=== PATIENT | female | born 1980 | race Caucasian/White ===

== ENCOUNTER 2020-04-04 19:40 | Observation (INO) | payer MEDICAID ==
[~2020-04-04] VITALS: Ht 160 cm; Wt 70.3 kg
[2020-04-04] MEDS ORDERED: FERR325T6 PO (21:23)
[2020-04-04] MEDS ORDERED: OMEGA (21:23)
[2020-04-04] MEDS ORDERED: PREN1TAB78 PO (21:23)
[2020-04-04] MEDS ORDERED: ASPI-1160 PO (21:23)
== END 2020-04-05 21:35 | disposition home or self-care (01) ==
LOC: ER 19:40 → 8 EST LDRP 04-05 19:42
PROVIDERS: ADMIT Obstetrics & Gynecology; ATTEND Obstetrics & Gynecology
DX: Z34.93 Encounter for supervision of normal pregnancy, unspecified, third trimester (principal); Z3A.38 38 weeks gestation of pregnancy
CPT/HCPCS: 59025; 76815; 76818; 99281; G0378

== ENCOUNTER 2020-04-04 20:06 | Observation (INO) | payer MEDICAID ==
[~2020-04-04] VITALS: Ht 160 cm; Wt 70.3 kg
[2020-04-04] MEDS ORDERED: PREN1TAB78 PO (21:23)
[2020-04-04] MEDS ORDERED: ASPI-1160 PO (21:23)
[2020-04-04] MEDS ORDERED: FERR325T6 PO (21:23)
[2020-04-04] MEDS ORDERED: OMEGA (21:23)
== END 2020-04-04 22:40 | disposition home or self-care (01) ==
LOC: 8 EST LDRP 20:06
PROVIDERS: ADMIT Obstetrics & Gynecology; ATTEND Obstetrics & Gynecology
DX: O41.03X0 Oligohydramnios, third trimester, not applicable or unspecified (principal); Z3A.37 37 weeks gestation of pregnancy
CPT/HCPCS: 76815; 76818; 99281; G0378

== ENCOUNTER 2020-04-11 23:21 | Inpatient (IN) | payer MEDICAID ==
[~2020-04-11] VITALS: Ht 160 cm; Wt 68.0 kg
[~2020-04-11 23:21] MED LIST: ASPI-1160 PO; FERR325T6 PO; OMEGA; PREN1TAB78 PO
[2020-04-11] MEDS ORDERED: BUTORPHANOL TARTRATE 2 MG/ML VIAL IV PRN (23:45)
[2020-04-11] MEDS ORDERED: METHYLERGONOVINE MALEATE 0.2 MG/ML IM PRN (23:45)
[2020-04-11] MEDS ORDERED: NALOXONE HCL 0.4 MG/ML 1ML VIAL IM PRN (23:45)
[2020-04-11] MEDS ORDERED: LIDOCAINE HCL 1% 20ML VIAL (Pyxis) INJ INFIL SCH (23:45)
[2020-04-11] MEDS ORDERED: RHO(D) IMMUNE GLOBULIN 300 MCG/SYR IM ONE (23:45)
[2020-04-12 01:23] LABS: BASOPHILS % 0.4 % (0.0-2.0); EOSINOPHILS % 0.5 % (0.0-5.0); HEMATOCRIT. 38.8 % (36.0-48.0); HEMOGLOBIN. 13.3 g/dL (12.0-16.0); LYMPHOCYTES % 17.1 % (20.0-50.0); MEAN CORPUSCULAR HEMOGLOBIN 29.9 pg (28.0-32.0); MEAN PLATELET VOLUME 9.1 fl (7.4-10.4); PLATELET 223 x1000/uL (130-400); RED BLOOD CELL COUNT 4.46 mill/uL (4.2-5.4); RED CELL DISTRIBUTION WIDTH 14.2 % (11.6-14.6)
[2020-04-12 01:24] LABS: CLARITY URINE CLEAR (CLEAR); COLOR URINE YELLOW (YELLOW); KETONES URINE NEGATIVE (NEGATIVE); LEUKOCYTE ESTERASE URINE NEGATIVE (NEGATIVE); NITRITE URINE NEGATIVE (NEGATIVE); OCCULT BLOOD URINE NEGATIVE (NEGATIVE); PH URINE 6.5 (4.5-8.0); PROTEIN URINE NEGATIVE (NEGATIVE); SPECIFIC GRAVITY URINE 1.007 (1.005-1.030); UROBILINOGEN URINE 0.2 E.U./dL (0.2-1.0)
[2020-04-12 01:36] LABS: *AMPHETAMINES SCREEN URINE NEGATIVE (NEGATIVE); *BARBITURATES SCREEN URINE NEGATIVE (NEGATIVE)
[2020-04-12 01:37] LABS: *BENZODIAZEPINES SCREEN URINE NEGATIVE (NEGATIVE); *COCAINE SCREEN URINE NEGATIVE (NEGATIVE); CANNABINOID URINE SCREEN NEGATIVE (NEGATIVE); OPIATES URINE SCREEN NEGATIVE (NEGATIVE); PHENCYCLIDINE URINE SCREEN NEGATIVE (NEGATIVE)
[2020-04-12 01:44] LABS: INR 0.9; PARTIAL THROMBOPLASTIN TIME 25.6 sec (23.4-31.0); PROTHROMBIN TIME 9.6 sec (9.6-11.0)
[2020-04-12 01:46] LABS: METHADONE URINE SCREEN NEGATIVE (NEGATIVE)
[2020-04-12] MEDS: LACTATED RINGERS 1,000 ML IV SCH ×3 (02:25→09:54)
[2020-04-12] MEDS: DEXT 5%/LR + PITOCIN 20UNITS/L 1,000 ML IV SCH ×2 (02:33→10:49)
[2020-04-12 02:41] LABS: HEPATITIS B SURFACE ANTIGEN NEGATIVE
[2020-04-12] MEDS ORDERED: DEXT 5%/LR + PITOCIN 20UNITS/L 1,000 ML IV SCH (10:44)
[2020-04-12] MEDS ORDERED: METHYLERGONOVINE MALEATE 0.2 MG/ML IM PRN (10:45)
[2020-04-12] MEDS ORDERED: IBUPROFEN 800MG TABLET PO PRN (10:45)
[2020-04-12] MEDS ORDERED: DIPHENHYDRAMINE 25MG CAPSULE PO PRN (10:45)
[2020-04-12] MEDS ORDERED: RHO(D) IMMUNE GLOBULIN 300 MCG/SYR IM PRN (10:45)
[2020-04-12] MEDS ORDERED: LANOLIN OINT 7GM TUBE TOP PRN (10:45)
[2020-04-12] MEDS ORDERED: IBUPROFEN 400MG TABLET PO PRN (10:45)
[2020-04-12 14:10] VITALS: BP 97/58
[2020-04-12 15:30] VITALS: BP 117/68
[2020-04-12 18:30] VITALS: BP 92/57
[2020-04-12 20:00] VITALS: BP 95/55
[2020-04-12] MEDS ORDERED: DOCUSATE SODIUM 100MG CAPSULE PO SCH (21:00)
[2020-04-12] MEDS: BENZOCAINE/LANOLIN/ALOE VERA SPRAY TOP PRN (21:07)
[2020-04-13 04:00] VITALS: BP 99/67
[2020-04-13 07:44] LABS: BASOPHILS % 0.3 % (0.0-2.0); EOSINOPHILS % 0.3 % (0.0-5.0); HEMATOCRIT. 32.4 % (36.0-48.0); HEMOGLOBIN. 11.4 g/dL (12.0-16.0); LYMPHOCYTES % 13.2 % (20.0-50.0); MEAN CORPUSCULAR HEMOGLOBIN 30.5 pg (28.0-32.0); MEAN CORPUSCULAR VOLUME 87.1 fL (81.0-99.0); MEAN PLATELET VOLUME 8.7 fl (7.4-10.4); MONOCYTES % 5.1 % (2.0-8.0); NEUTROPHILS % 81.1 % (40.0-76.0); PLATELET 209 x1000/uL (130-400); RED BLOOD CELL COUNT 3.72 mill/uL (4.2-5.4); RED CELL DISTRIBUTION WIDTH 13.8 % (11.6-14.6)
[2020-04-13 08:00] VITALS: BP 95/64
[2020-04-13] MEDS ORDERED: PRENATAL VIT/FE FUMARATE/FA TABLET PO SCH (09:00)
[2020-04-13] MEDS: BENZOCAINE/LANOLIN/ALOE VERA SPRAY TOP PRN (12:10)
== END 2020-04-13 14:10 | disposition home or self-care (01) | DRG 560 ==
LOC: OBSVTOIN 23:21 → 8 EST LDRP 23:21 → 8EST 04-12 13:54
PROVIDERS: ADMIT Obstetrics & Gynecology; ATTEND Obstetrics & Gynecology
PROC: 10E0XZZ Delivery of Products of Conception, External Approach (ICD-10-PCS; principal; 2020-04-12)
PROC: 3E033VJ Introduction of Other Hormone into Peripheral Vein, Percutaneous Approach (ICD-10-PCS; 2020-04-12)
PROC: 0HQ9XZZ Repair Perineum Skin, External Approach (ICD-10-PCS; 2020-04-12)
DX: O24.429 Gestational diabetes mellitus in childbirth, unspecified control (principal); O70.0 First degree perineal laceration during delivery; O41.03X0 Oligohydramnios, third trimester, not applicable or unspecified; Z37.0 Single live birth; Z3A.39 39 weeks gestation of pregnancy; Z79.82 Long term (current) use of aspirin; Z79.899 Other long term (current) drug therapy
CPT/HCPCS: 36415; 80305; 81003; 82962; 85025; 86592; 86703; 86762; 86850; 86900; 87340; 99281; G0378; J2590; J3490

== ENCOUNTER 2020-07-13 01:10 | Emergency (ER) | payer MEDICAID ==
[~2020-07-13] VITALS: Ht 160 cm; Wt 62.0 kg
[2020-07-13] MEDS ORDERED: KETOROLAC 30MG/ML VIAL IV STA (01:32)
[2020-07-13 01:55] LABS: BASOPHILS % 0.5 % (0.0-2.0); EOSINOPHILS % 1.3 % (0.0-5.0); HEMATOCRIT. 40.9 % (36.0-48.0); HEMOGLOBIN. 13.9 g/dL (12.0-16.0); LYMPHOCYTES % 28.1 % (20.0-50.0); MEAN CORPUSCULAR HEMOGLOBIN 28.5 pg (28.0-32.0); MEAN CORPUSCULAR VOLUME 83.7 fL (81.0-99.0); MEAN PLATELET VOLUME 7.8 fl (7.4-10.4); MONOCYTES % 5.3 % (2.0-8.0); NEUTROPHILS % 64.8 % (40.0-76.0); PLATELET 237 x1000/uL (130-400); RED BLOOD CELL COUNT 4.89 mill/uL (4.2-5.4); RED CELL DISTRIBUTION WIDTH 13.5 % (11.6-14.6)
[2020-07-13 01:57] LABS: CHLORIDE 106 mEq/L (98-107)
[2020-07-13 02:02] LABS: ETHANOL BLOOD < 10 mg/dL
[2020-07-13] MEDS ORDERED: HYDROCODONE/ACETAMINOPHEN 10/325MG TABLET PO SCH (03:00)
[2020-07-13 03:02] LABS: CLARITY URINE CLEAR (CLEAR); COLOR URINE YELLOW (YELLOW); KETONES URINE NEGATIVE (NEGATIVE); LEUKOCYTE ESTERASE URINE NEGATIVE (NEGATIVE); NITRITE URINE NEGATIVE (NEGATIVE); OCCULT BLOOD URINE NEGATIVE (NEGATIVE); PH URINE 6.5 (4.5-8.0); PROTEIN URINE NEGATIVE (NEGATIVE); SPECIFIC GRAVITY URINE 1.016 (1.005-1.030)
[2020-07-13 03:13] LABS: *AMPHETAMINES SCREEN URINE NEGATIVE (NEGATIVE); *BARBITURATES SCREEN URINE NEGATIVE (NEGATIVE); *BENZODIAZEPINES SCREEN URINE NEGATIVE (NEGATIVE); METHADONE URINE SCREEN NEGATIVE (NEGATIVE)
[2020-07-13 03:14] LABS: CANNABINOID URINE SCREEN NEGATIVE (NEGATIVE); OPIATES URINE SCREEN NEGATIVE (NEGATIVE); PHENCYCLIDINE URINE SCREEN NEGATIVE (NEGATIVE)
[2020-07-13 03:21] LABS: *COCAINE SCREEN URINE NEGATIVE (NEGATIVE)
[2020-07-13 06:00] VITALS: BP 121/74
== END 2020-07-13 06:05 | disposition home or self-care (01) ==
LOC: ER 01:10
DX: K80.20 Calculus of gallbladder without cholecystitis without obstruction (principal)
CPT/HCPCS: 36415; 74176; 76705; 80053; 80305; 80320; 81003; 83690; 85025; 93005; 99285; J1885; G0480